=== PATIENT | male | born 1990 | race Caucasian/White ===

== ENCOUNTER 2020-12-14 10:19 | Emergency (ER) | payer SELFPAY ==
[2020-12-14 10:25] VITALS: BP 161/99; PULSE 88; RESP 16; TEMP 36.5; O2SAT 95; BMI 33.9
--- NOTE | 2020-12-14 10:45 | ED_ITS ---
HPI - General Adult General: Chief complaint: General Medical Stated complaint: Numbness in L. Leg/Overall Check Up Time Seen by Provider: 12/14/20 10:24 History of Present Illness: HPI narrative: Patient complains about knee pain and left knee for several months. Also has numbness goes down left leg times several months. Says he has a tremor occasionally left arm also says he has high blood pressure occasionally. Patient states that he was unable to get into [facility] because he is self-pay. He said they told him to come to the ER to get evaluated. Patient is not try to establish with a primary care besides [facility]. Onset (ago): month(s) Quality: aching Pain Consistency: intermittent Associated symptoms: Reports no associated symptoms; Deny chest pain, dyspnea, headache(s), nausea, rash or vomiting Review of Systems 2 Const: Denies: fever(s), chills or body aches Eyes: Denies: change in vision or blurry vision ENMT: Denies: throat pain or nasal congestion Card: Reports: other (Thanks blood pressure is up occasionally has family history of hypertension); Denies: chest pain or dyspnea on exertion Resp: Denies: dyspnea, productive cough or non-productive cough GI: Denies: abdominal pain, nausea or vomiting : Denies: difficulty urinating Musc: Reports: joint pain (Left knee hurts to get up from kneeling position); Denies: extremity pain Skin/Breast: Denies: rash Neuro: Reports: involuntary movements (Has slight tremor left arm intermittently) and other (Has numbness left side of the leg when his back hurts); Denies: headache(s) Psych: Denies: anxiety or depression Keith/Lymph: Denies: easy bruising PFS ED PFSH: Medical History (Updated 12/14/20 @ 10:42 by ENRIQUE Drew) Anxiety MDD (major depressive disorder) Social History (Updated 11/15/19 @ 12:06 by Ana María Encarnacion LPN) Smoking and tobacco status: former smoker Current gender identity: Male Physical Exam Const: COMMON NORMALS: no acute distress, average body habitus and patient oriented x3 HENMT: COMMON NORMALS: normocephalic HEAD & SCALP: normal to inspection and normocephalic FACE & SINUS: normal facial exam Eye: COMMON NORMALS: conjunctivae normal GENERAL EYE: appearance normal, b oth eyes and all related structures CONJUNCTIVA: Yes conjunctivae normal Neck/C-Spine: COMMON NORMALS: no JVD Chest: COMMONS NORMALS: normal inspection of the chest Resp: COMMON NORMALS: normal respiratory effort and clear to auscultation bilaterally AUSCULTATION: clear to auscultation bilaterally Cardio: COMMON NORMALS: no JVD, regular rate and regular rhythm RATE: regular rate RHYTHM: regular rhythm GI: COMMON NORMALS: Normal to inspection, nondistended, normoactive bowel sounds present : COMMON NORMALS: Yes no CVA tenderness BLADDER/KIDNEY EXAM: Yes no CVA tenderness Back/Pelvis: COMMON NORMALS: no CVA tenderness THORACIC SPINE/UPPER BACK: Yes normal to inspection LUMBAR SPINE/LOWER BACK: Yes normal to inspection, No straight leg raise positive right and No straight leg raise positive left Extremity: COMMON NORMALS: full ROM LEFT LOWER EXTREMITY: Yes knee joint Left knee: Yes special tests Left knee special tests: Medial-?lateral grind test: Positive and Pivot shift test: Positive Neuro: COMMON NORMALS: patient oriented x3 MOTOR EXAM: Other motor observations present (No numbness left leg presently) Course Vital Signs: Vital signs: Vital Signs Temperature 97.7 F 12/14/20 10:25 Pulse Rate 88 12/14/20 10:25 Respiratory Rate 16 12/14/20 10:25 Blood Pressure 161/99 12/14/20 10:25 Pulse Oximetry 95 12/14/20 10:25 Discharge Plan Discharge Patient Disposition: Home Clinical Impression: Benign essential HTN, Left leg numbness Knee meniscus pain Qualifiers: Laterality: left Qualified Code(s): M25.562 - Pain in left knee Condition: Stable Prescriptions: No Action ondansetron HCl [Zofran] 4 mg tablet 4 mg PO Q6H PRN (Reason: nausea and vomiting) Qty: 15 RF: 0 escitalopram oxalate 20 mg tablet 20 mg PO DAILY 30 Days Qty: 30 RF: 4 Discharge Orders: Discharge ED (Routine); Ordered 12/14/20 Ordered By: Jeison Voss Discharge Diet: Usual diet Discharge Activity: Increase activity as tolerated Patient Instructions: Chronic Hypertension (ED), Knee Pain (ED), Chronic Back Pain (ED) Activity Restrictions/Additional Instructions: Establish at family [facility]. Apply ice to knees. Can use [id number] Voltaren cream. Monitor blood pressure decrease salt in diet increase exercise and lifestyle and lose weight. Use proper lifting techniques to help Coding Level of Care Code ED Monitor Car Operator for Chepe Mccullough
[2020-12-14 10:49] VITALS: BP 153/95; PULSE 98; RESP 16; O2SAT 96
== END 2020-12-14 10:50 | disposition home or self-care (01) ==
PROVIDERS: Emergency Provider Nurse Practitioner Family
DX: R20.0 Anesthesia of skin (principal); I10 Essential (primary) hypertension; M25.562 Pain in left knee; Z87.891 Personal history of nicotine dependence
CPT/HCPCS: 99281

== ENCOUNTER → 2021-03-27 12:21 | Outpatient (BNVA) | payer OTHER, SELFPAY | PROVIDERS: PCP Family Medicine Adult Medicine; Visit Provider Nurse Practitioner Family | DX: Z20.822 Contact with and (suspected) exposure to COVID-19 (principal) | CPT/HCPCS: 87635 ==

== ENCOUNTER → 2021-07-07 14:58 | Outpatient (BNVA) | payer OTHER, SELFPAY | PROVIDERS: PCP Family Medicine Adult Medicine; Visit Provider Nurse Practitioner | DX: Z20.822 Contact with and (suspected) exposure to COVID-19 (principal) | CPT/HCPCS: 87635 ==

== ENCOUNTER → 2021-12-03 10:38 | Outpatient (BNVA) | payer SELFPAY | PROVIDERS: PCP Family Medicine Adult Medicine; Visit Provider Registered Nurse Neonatal Intensive Care | DX: R05.9 Cough, unspecified (principal); B34.9 Viral infection, unspecified | CPT/HCPCS: 81000; 87400 ==

== ENCOUNTER → 2022-09-18 10:29 | Outpatient (BNVA) | payer SELFPAY | PROVIDERS: PCP Family Medicine Adult Medicine; Visit Provider Family Medicine Adult Medicine | DX: E66.9 Obesity, unspecified (principal); I10 Essential (primary) hypertension; Z83.3 Family history of diabetes mellitus | CPT/HCPCS: 80053; 83036; 84443; 85025 ==

== ENCOUNTER → 2024-09-29 10:01 | Outpatient (BNVA) | payer SELFPAY | PROVIDERS: PCP Family Medicine Adult Medicine; Visit Provider Emergency Medicine | DX: K21.9 Gastro-esophageal reflux disease without esophagitis (principal); R19.7 Diarrhea, unspecified | CPT/HCPCS: 80053; 83690; 85025 ==